=== PATIENT | male | born 1965 | race Caucasian/White ===

== ENCOUNTER 2024-01-03 17:19 | Emergency (ER) | payer OTHER ==
[~2024-01-03] VITALS: Ht 177.8 cm; Wt 99.8 kg
[2024-01-03 17:37] VITALS: BP_SYST 163; PULSE 81; RESP 16; TEMP 98.9; O2SAT 98
[2024-01-03] MEDS: KETOROLAC TROMETHAMINE 15 MG VIAL IM ONE (18:26)
[2024-01-03] MEDS: methocarbamoL 500 MG TABLET PO ONE (18:27)
[2024-01-03] MEDS ORDERED: IBUP-1969 PO (18:28)
[2024-01-03 18:39] VITALS: BP_SYST 163; PULSE 81; RESP 16; TEMP 98.9; O2SAT 98
== END 2024-01-03 18:40 | disposition home or self-care (01) ==
LOC: SED 17:19
DX: S49.81XA Other specified injuries of right shoulder and upper arm, initial encounter (principal); V80.010A Animal-rider injured by fall from or being thrown from horse in noncollision accident, initial encounter; Y93.89 Activity, other specified; Y92.89 Other specified places as the place of occurrence of the external cause; Y99.8 Other external cause status
CPT/HCPCS: 99283; 73030; 96372; J1885